=== PATIENT | male | born 1960 | race Caucasian/White ===

== ENCOUNTER → 2017-07-26 | Outpatient (CLI) | payer OTHER | LOC: RAD 13:27 | DX: J44.9 Chronic obstructive pulmonary disease, unspecified (principal) ==

== ENCOUNTER 2019-01-28 06:35 | Emergency (ER) | payer OTHER ==
[~2019-01-28] VITALS: Ht 180.3 cm; Wt 74.8 kg
[~2019-01-28 06:35] MED LIST: ASPIRIN325 PO; BREO ELLIPTA 11 EACH INH; LIDOCAINE1 EACH TOP; NORCO 5-325 TA1 EACH PO; VENTOLIN HFA INH8 GM INH
[2019-01-28] MEDS ORDERED: BRIDION200 MG/2 M (06:40)
[2019-01-28] MEDS ORDERED: NORCO 5-325 TA1 EACH PO (08:11)
[2019-01-28 08:30] VITALS: BP 131/81
== END 2019-01-28 08:03 | disposition home or self-care (01) ==
LOC: ER 06:35
DX: S63.681A Other sprain of right thumb, initial encounter (principal); S20.212A Contusion of left front wall of thorax, initial encounter; E78.00 Pure hypercholesterolemia, unspecified; F17.210 Nicotine dependence, cigarettes, uncomplicated; Z88.1 Allergy status to other antibiotic agents; W18.39XA Other fall on same level, initial encounter; Y93.89 Activity, other specified; Y92.89 Other specified places as the place of occurrence of the external cause; Y99.8 Other external cause status

== ENCOUNTER → 2019-03-21 | Outpatient (CLI) | payer OTHER ==
[~2019-03-21] VITALS: Ht 177.8 cm; Wt 74.8 kg
[~2019-03-21] MED LIST changes: +BRIDION200 MG/2 M; +LIPITOR40 MG PO; +LOPRESSOR50 PO; +NITROSTAT0.4 M1 SUBLING
[2019-03-21 07:01] VITALS: BP 144/74
[2019-03-21 07:05] LABS: HEMATOCRIT 49.9 % (42.0-52.0); HEMOGLOBIN 16.8 gm/dL (14.0-18.0); MCH 33.4 pg (26.0-34.0); MCHC 33.6 g/dL (28.0-37.0); MCV 99.2 fL (80.0-100.0); RBC 5.02 mil/uL (4.50-6.00); RDW 14.1 % (10.5-14.5); WBC 10.1 thou/uL (4.0-11.0)
[2019-03-21 07:14] LABS: CALCIUM 9.2 mg/dL (8.5-10.1); CREATININE 0.9 mg/dL (0.7-1.3); POTASSIUM 4.3 mmol/L (3.5-5.1)
--- NOTE | 2019-03-22 08:02 | EKG ---
[place] [address] [employer] [place] [address] ELECTROCARDIOGRAM REPORT Name: MIKE BURGESS [id number] ������������������ Admission: 03/21/19 ������������������ Attend Phys: John Youssef MD, Discharge: ������������������ Date of : 60 Report #: [id number] ����������������������������������������������������������������� [id number] THIS REPORT FOR: //name// 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 TOWNSEND : 1960 Requested By: John Youssef Order Number: [id number] MD: Chuy Ramirez Measurements Intervals [place] Rate: 74 P: 36 MI: 155 QRS: -55 QRSD: 164 T: 118 QT: 450 QTc: 500 Interpretive Statements Sinus rhythm Left bundle branch block Compared to ECG 04/26/2018 08:33:20 No significant changes Electronically Signed On 03-22-2019 8:01:55 CDT by Chuy Ramirez [email or web address] ��������������������������������������������� <ELECTRONICALLY SIGNED> ���������������������������������������� By: Chuy Ramirez MD, [facility] ��������������������������������������������� 03/22/19800 1 1 Chuy Ramirez MD, FACC /EPI
--- NOTE | 2019-03-22 14:02 | CATHLAB ---
[facility] [address] [place] [address] INVASIVE PROCEDURE REPORT Name: MIKE BURGESS Room #: REG Nikky#: [id number] ������������� Admission: 03/21/19 ������������� Attend Phys: John Youssef, Discharge: ��� ������������� ��� Date of : 60 Date of Service: 03/22/19 1402 �� Report #: [id number] �������� ��������������������������������������������[id number] THIS REPORT FOR: //name// APPROVED REPORT Study performed: 03/21/2019 07:56:18 Patient Details Patient Status: Out-Patient Room #: The patient is a 58 year-old male Event Personnel John Youssef Kennel Hand, Frankie Antoine RN, Danny Bowden RTR Scrub, Tino Soto RN RN, Jaciel Guevara Monitor, Jf Manzanares RTR Scrub Procedures Performed Art Access - R femoral artery* Geoffrey Access - R femoral vein Right and Left Heart Cath w/or w/o Coronarie [id number] [facility] Hemostasis w/ Mynx Indication Chest pain Procedure Narrative The patient was brought electively to the Cardiac Catheterization Laboratory and was prepped and draped in a sterile manner. The Right Groin^ was infiltrated with 1% Lidocaine subcutaneous anesthesia. A Right Heart Catheterization was performed with a 7 Fr. [place] catheter and pressure were recorded. Cardiac outputs were obtained by the Thermal Dilution method. A PINNACLE 6FR Sheath #[id number] sheath was inserted into the RFA^. Coronary angiography was performed using coronary diagnostic catheters. The right coronary system was accessed and visualized with a JR 4 catheter. The left coronary system was accessed and visualized with a JL 4 catheter. The left ventricle was accessed and visualized with a Pigtail catheter. Left ventriculogram was performed in [place] projection. An aortogram of the abdominal aorta was performed. Pre-demployment femoral angiogram was performed . Closure device was deployed with a 6 Fr Mynx. The patient tolerated the procedure well and there were no complications associated with the procedure. There was no hematoma. Intraoperative Conscious Sedation Sedation start time: 08:20 Case end Time: 08:45 [facility] [address] [place] [address] INVASIVE PROCEDURE REPORT Name: ADITYAMIKE SHEILA Room #: [facility] Nikky#: [id number] ������������� Admission: 03/21/19 ������������� Attend Phys: John Youssef, Discharge: ��� ������������� ��� Date of : 60 Date of Service: 03/22/19 1402 �� Report #: [id number] �������� ��������������������������������������������[id number] Fentanyl 100 mcg Versed 2 mg Fluoro Time: 2.14 minutes Dose: DAP 3489.00 cGycm2 404 mGy Contrast Type and Amount: Omnipaque 115 ml Hemodynamics The right atrial mean pressure is 7 mmHg. The right ventricular pressure is 34/-2 mmHg. The pulmonary artery pressure is 30/12 mmHg with a mean of 19 mmHg. The mean pulmonary capillary wedge pressure is 14 mmHg. The aortic pressure is 99/56 mmHg with a mean of 69 mmHg. The left ventricular pressure is 115/2 mmHg with a mean of mmHg. The left ventricular end diastolic pressure is 12 mmHg. Conclusion #1 successful right heart catheterization with cardiac output by thermodilution. See above hemodynamics. #2 mildly dilated left ventricle with moderate global hypokinesis EF 40% range. #3 abdominal aortogram with mild irregularities no aneurysm formation single bilateral renal arteries appear widely patent #4 left main free of disease giving rise to LAD and circumflex #5 the LAD extends to the apex diffusely diseased distally there is a proximal mid vessel stent to 60% in-stent restenosis this was placed remotely. Does not appear to be flow limiting. #6 circumflex OM mild irregularity #7 dominant right coronary with mild irregularity no occlusive disease. Recommendations and plan: Continue aggressive risk factor modification. Continue afterload reduction. 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 Alcohol cessation strongly recommended we'll have close follow-up. ��������������������������������������������� <ELECTRONICALLY SIGNED> ���������������������������������������� By: John Youssef MD, FACC ��������������������������������������������� 03/22/19 1402 140 01 John Youssef MD, FACC /INF
== END | disposition home or self-care (01) ==
LOC: CATH 06:38
PROVIDERS: Internal Medicine Cardiovascular Disease
DX: R07.9 Chest pain, unspecified (principal); E78.00 Pure hypercholesterolemia, unspecified; I42.9 Cardiomyopathy, unspecified; I10 Essential (primary) hypertension; J44.9 Chronic obstructive pulmonary disease, unspecified; E78.5 Hyperlipidemia, unspecified; F17.210 Nicotine dependence, cigarettes, uncomplicated; Z95.5 Presence of coronary angioplasty implant and graft; Z88.8 Allergy status to other drugs, medicaments and biological substances; Z79.82 Long term (current) use of aspirin; Z79.899 Other long term (current) drug therapy

== ENCOUNTER 2021-01-03 22:34 | Inpatient (IN) | payer OTHER ==
[~2021-01-03] VITALS: Ht 180.3 cm; Wt 81.2 kg
--- NOTE | ~2021-01-03 | HC ---
[facility] [place] [address] CONSULTATION Name: MIKE BURGESS Room #: 464- ADM IN M.R.#: [id number] Admission: 01/04/21 Attend Phys: Talib Barrientos MD Discharge: Date of : 60 Report #: [id number] THIS REPORT FOR: cc: Erwin Nelson Steven F. DO McElhinney, Christian C. MD ~ DOC #: [id number] cc: MD Jose Bautista MD DATE OF SERVICE: 01/04/2021 HISTORY OF PRESENT ILLNESS: The patient is a 60-year-old male with recent nausea, vomiting and hematemesis. Hemoglobin on admission was 17.8, today is 15.8. No previous history of GI bleed. No history of endoscopy in the past. He does not have insurance. He ran out of his medications. He started taking his cardiac medications yesterday at 2:00 p.m. and at 4:00 p.m., he began having nausea and vomiting followed by hematemesis. He denies any abdominal pain. No heartburn. No dysphagia or odynophagia. No chest pain or shortness of breath currently. Again, no previous history of colonoscopy. His bowel movements have been normal. He denies any melanotic stools. He is on aspirin on a regular basis at home. He is feeling better today after antinausea medications, has been drinking liquids all morning without emesis. ALLERGIES: CEPHALEXIN. PAST MEDICAL HISTORY: Hypercholesterolemia, history of coronary artery disease status post stent placement, asthma and hypertension. REVIEW OF SYSTEMS: As per HPI. HOME MEDICATIONS: Lopressor, aspirin, Lipitor, nitroglycerin p.r.n., and Edarbi. FAMILY HISTORY: Negative for colon cancer. SOCIAL HISTORY: Drinks alcohol on a regular basis. He also smokes cigarettes on a regular basis, 2 packs per day. PHYSICAL EXAMINATION: VITAL SIGNS: Temperature is 36.7, pulse 102, blood pressure is 126/92, respiratory rate is 18. GENERAL: He is alert and oriented x3, no acute distress. HEENT: Sclerae nonicteric. Oropharynx clear. NECK: Supple, without lymphadenopathy. CARDIOVASCULAR: Regular rate and rhythm. [facility] [address] [place] [address] CONSULTATION Name: MIKE BURGESS Room #: 4-[facility] IN M.R.#: [id number] Admission: 01/04/21 Attend Phys: Talib Barrientos MD Discharge: Date of : 60 Report #: [id number] RESPIRATORY: Chest is clear to auscultation bilaterally. ABDOMEN: Soft, nontender, nondistended. Normoactive bowel sounds. EXTREMITIES: No cyanosis, clubbing or edema. LABORATORY DATA: WBC is 9.0, hemoglobin 15.8, platelet count 225. Sodium 140, potassium 3.6, chloride 103, bicarbonate 27, BUN 8, creatinine 0.8, total bilirubin 1.3, AST 30, ALT 57, alkaline phosphatase 79, troponin less than 0.06, total protein 8.1, albumin 3.8, lipase 63. UA showed 1+ ketones, otherwise negative. IMAGING: CT scan of the abdomen and pelvis was performed yesterday and showed large fluid filling of the stomach with enhancement of the gastric mucosa suggesting gastritis, diffuse fatty infiltration of the liver was noted. Gallbladder and bile ducts were unremarkable. Chest x-ray yesterday, mild cardiomegaly without findings of acute pulmonary disease. ASSESSMENT: Nausea, vomiting and hematemesis. Hemoglobin stable at this time. The patient has been on aspirin on a regular basis. I would recommend proceeding with an upper endoscopy in the near future for further evaluation. He had liquids today already for breakfast because he has never had a colonoscopy. I recommended doing both EGD and colonoscopy tomorrow. He is in agreement with this. PLAN: We will continue to hold aspirin. Continue PPI therapy. Monitor hemoglobin and we will prep for EGD and colonoscopy for tomorrow. Thank you for allowing me to participate in his care. Jose Correia MD CCM/SMITA By: [id number] Jose Correia MD /nt
--- NOTE | ~2021-01-03 | EMS ---
[address] [address] EMS Patient Care Report Name: MIKE BURGESS Room #: 464-P ADM IN M.R.#: [id number] Admission: 01/04/21 Attend Phys: Talib Barrientos MD Discharge: Date of : 60 Report #: [id number] THIS REPORT FOR: //name// Report Transmitted: 01/04/2021 03:05 EMS Care Summary [place], [place]/[facility] Incident [id number] @ 01/03/2021 22:08 Incident Location [address] [place] [address] Patient MIKE BURGESS Male, 60 Years 1960 Patient Address [address] [place] [address] Patient History Hypertension (HTN),Cardiac - Stent, Patient Allergies Cephalexin, Patient Medications Other, Atorvastatin, Metoprolol, Albuterol, Chief Complaint abdominal pain Disposition Transported No Lights/[place] [facility] Reason Hemorrhage/Laceration Transported To [facility] Narrative pt found sitting upright in chair and alert. pt a&ox4 gcs 15 and did not present in apparent distress. pt stated he began taking all meds that are listed in med section today at approx 1400. pt stated at around 1600 he began having abdominal pain and vomiting. pt stated he has vomited appro[place] [address] EMS Patient Care Report Name: MIKE BURGESS Room #: 464-P ADM IN M.R.#: [id number] Admission: 01/04/21 Attend Phys: Talib Barrientos MD Discharge: Date of : 60 Report #: [id number] stated he took all of those meds years ago but stopped due to a lapse in health insurance coverage. pt requested to be transported to [facility]. pt was transferred onto ems cot and was secured in a semi fowlers position without incident. pt was loaded into ambulance. pt was transported non emergent. pt was administered 4mg zofran po. transport was uneventful and pt rested on ems cot. pt care was transferred to appropriate staff and ems goes back in service. pts meds were left with pt. Initial Vitals @22:18P: 86,R: 20,BP: 144/90,Pain: 2/10,GCS: 15,SpO2: 95,Revised Trauma: 12, @22:30P: 90,R: 20,BP: 148/90,GCS: 15,SpO2: 95,Revised Trauma: 12, Assessments @22:14MENTAL:No Abnormalities,SKIN:No Abnormalities,HEENT:Head/Face: No Abnormalities,Eyes: No Abnormalities,Neck/Airway: No Abnormalities,LUNG SOUNDS:General: Vomiting,General: Nausea,General: Other,Left Upper: No Abnormalities,Right Upper: No Abnormalities,Left Lower: No Abnormalities,Right Lower: No Abnormalities,ABDOMEN:General: Vomiting,General: Nausea,General: Other,Left Upper: No Abnormalities,Right Upper: No Abnormalities,Left Lower: No Abnormalities,Right Lower: No Abnormalities,PELVIS//GI:No Abnormalities,EXTREMITIES:Left Arm: No Abnormalities,Right Arm: No Abnormalities,Left Leg: No Abnormalities,Right Leg: No Abnormalities,PULSE:NEURO:No Abnormalities,@22:24MENTAL:No Abnormalities,SKIN:No Abnormalities,HEENT:Head/Face: No Abnormalities,Eyes: No Abnormalities,Neck/Airway: No Abnormalities,LUNG SOUNDS:General: No Abnormalities,Left Upper: No Abnormalities,Right Upper: No Abnormalities,Left Lower: No Abnormalities,Right Lower: No Abnormalities,ABDOMEN:General: No Abnormalities,Left Upper: No Abnormalities,Right Upper: No Abnormalities,Left Lower: No Abnormalities,Right Lower: No Abnormalities,PELVIS//GI:No Abnormalities,EXTREMITIES:Left Arm: No Abnormalities,Right Arm: No Abnormalities,Left Leg: No Abnormalities,Right Leg: No Abnormalities,PULSE:NEURO:No Abnormalities, Impression Abdominal Pain Procedures @22:14ALS AssessmentResponse: UnchangedSucceeded@22:21Zofran - 4 Milligrams (mg) - OralResponse: Unchanged Timeline 22:05,Call Received 22:05,Dispatch Notified 22:08,Dispatched 22:08,En Route 22:13,On Scene [address] [address] EMS Patient Care Report Name: MIKE BURGESS Room #: 464-P ADM IN M.R.#: [id number] Admission: 01/04/21 Attend Phys: Talib Barrientos MD Discharge: Date of : 60 Report #: [id number] 22:14,At Patient 22:14,ALS Assessment,Response: UnchangedSucceeded, 22:18,BP: 144/90 M,PULSE: 86,RR: 20 R,SPO2: 95 Ox,ETCO2: ,BG: ,PAIN: 2,GCS: 15, 22:19,Depart Scene 22:21,Zofran - 4 Milligrams (mg) - Oral,Response: Unchanged 22:30,BP: 148/90 M,PULSE: 90,RR: 20 R,SPO2: 95 Ox,ETCO2: ,BG: ,PAIN: ,GCS: 15, 22:31,At Destination 22:39,Call Closed Disclaimer v1.1 Copyright 2020 [employer] This EMS Care Summary contains data elements from the applicable legal record (which may be displayed differently). It is designed to provide pertinent information for the following purposes: continuity of care, clinical quality, and state data reporting. The complete legal record is available to ED staff and administrators of the receiving hospital in [employer] Patient Tracker. All data is provided "as is."
--- NOTE | ~2021-01-03 | P ---
[facility] [address] PROCEDURE REPORT Name: MIKE BURGESS Room #: 464-P [facility] IN M.R.#: [id number] Admission: 01/04/21 Attend Phys: Talib Barrientos MD Discharge: 01/05/21 Date of : 60 Report #: [id number] THIS REPORT FOR: cc: Erwin Nelson Steven F. DO McElhinney, Christian C. MD ~ DOC #: [id number] cc: MD Jose Bautista MD DATE OF SERVICE: 01/05/2021 PROCEDURE PERFORMED: Colonoscopy with polypectomies. HISTORY OF PRESENT ILLNESS: The patient is a 60-year-old male with recent nausea, vomiting, hematemesis. Upper endoscopy was just performed showing multiple gastric ulcers with gastritis, likely long segment of Goldstein's esophagus and duodenitis. No active bleeding. Plan is for colonoscopy. The patient has never had a colonoscopy in the past. No family history of colon cancer. DESCRIPTION OF PROCEDURE: The risks and benefits of the procedure were explained to the patient, those risks including but not limited to bleeding, perforation, and the risk of sedation. He understood these risks and gave informed consent. Sedation was given using propofol per anesthesia. Next, a digital rectal exam was initially performed, which was normal. Next, using a standard Olympus colonoscope, the scope was placed in the patient's anus and advanced under direct vision to the cecum. The overall prep was fairly poor in the cecum and ascending colon. Multiple washings and aspirations were performed. The areas that were visualized were normal in the cecum, ileocecal valve, and ascending colon. The transverse colon was normal. In the descending colon, 2 polyps were noted. The smallest was 3 mm and removed with cold forceps, the larger was 6 and removed by snare cautery. In the sigmoid colon, 2 further polyps noted. The largest was 8 mm, removed and pedunculated, removed by snare cautery. The smaller was 4, removed by cold forceps, otherwise normal. The rectal mucosa was normal. On retroflexion, no abnormalities were noted. The scope was then withdrawn and the procedure terminated. The patient tolerated the procedure well. IMPRESSION: 1. Four colonic polyps as described above. 2. Otherwise, normal colonoscopy, but prep was poor in the right colon. RECOMMENDATIONS: 1. Await biopsy results. 2. Repeat colonoscopy in [address] [place] [address] PROCEDURE REPORT Name: MIKE BURGESS Room #: 464-P DIS IN M.R.#: [id number] Admission: 01/04/21 Attend Phys: Talib Barrientos MD Discharge: 01/05/21 Date of : 60 Report #: [id number] Thank you for allowing me to participate in his care. Jose Correia MD CCM/HÉCTOR By: 0934 Jose Correia MD /nt
--- NOTE | ~2021-01-03 | P ---
[facility] [place] [address] PROCEDURE REPORT Name: MIKE BURGESS Room #: 464-P [facility] IN M.R.#: [id number] Admission: 01/04/21 Attend Phys: Talib Barrientos MD Discharge: 01/05/21 Date of : 60 Report #: [id number] THIS REPORT FOR: cc: Erwin Nelson Steven F. DO McElhinney, Christian C. MD ~ DOC #: [id number] cc: MD Jose John MD DATE OF SERVICE: 01/05/2021 PROCEDURE PERFORMED: Upper endoscopy with biopsies. HISTORY OF PRESENT ILLNESS: The patient is a 60-year-old male with recent nausea, vomiting, hematemesis. No previous history of endoscopy. He has a history of daily aspirin use. Hemoglobin has been stable at 15 yesterday. Plan is for EGD and colonoscopy today. DESCRIPTION OF PROCEDURE: The risks and benefits of the procedure were explained to the patient, those risks including but not limited to bleeding, perforation, and the risk of sedation. He understood these risks and gave informed consent. Sedation was given using propofol per anesthesia. Next, using a standard Olympus upper endoscope, the scope was placed in the patient's mouth and advanced under direct vision through the esophagus, stomach, and into the second portion of the duodenum. The upper esophagus was normal; however, in the mid and distal esophagus, a long segment of likely Goldstein's was noted. This extended from 32 to 38 cm. Several biopsies were obtained. No evidence of esophagitis. Overall, there was a severe diffuse gastritis involving the entire stomach. In the body and antrum, multiple ulcerations were noted throughout. No evidence of active bleeding. Biopsies were obtained today to rule out H. pylori. The pylorus was normal and patent. In the duodenal bulb and first portion, there was mild duodenitis. No evidence of ulcers or bleeding. The second portion of the duodenum was normal. The scope was then withdrawn and the procedure terminated. The patient tolerated the procedure well. IMPRESSION: 1. Likely long segment of Goldstein's esophagus. Biopsies obtained. 2. Severe diffuse gastritis with multiple ulcerations in the gastric body and antrum. No active bleeding at this time. Likely source of recent hematemesis. Biopsies obtained for Helicobacter pylori. 3. Duodenitis. RECOMMENDATIONS: 1. Await biopsy results. 2. Continue daily PPI therapy long-term. [address] [address] PROCEDURE REPORT Name: MKIE BURGESS Room #: 464-P DIS IN M.R.#: [id number] Admission: 01/04/21 Attend Phys: Talib Barrientos MD Discharge: 01/05/21 Date of : 60 Report #: [id number] 3. We will add Carafate for the next two weeks. 4. We will proceed with colonoscopy next today. Thank you for allowing me to participate in his care. Jose Correia MD CCM/HÉCTOR By: 0906 [id number] Jose Correia MD /nt
[2021-01-03 22:46] VITALS: BP 146/82
[2021-01-03 22:58] LABS: ABSOLUTE NEUTROPHILS 9.9 thou/uL (1.4-8.2); BASOPHILS 0.5 % (0.0-2.0); EOSINOPHILS 0.2 % (0.0-3.0); HEMATOCRIT 51.5 % (42.0-52.0); HEMOGLOBIN 17.8 gm/dL (14.0-18.0); MCH 32.7 pg (26.0-34.0); MCHC 34.5 g/dL (28.0-37.0); MCV 94.8 fL (80.0-100.0); MONOCYTES 6.6 % (1.0-8.0); PLATELET COUNT 251 thou/uL (150-400); POLYS 82.7 % (36.0-66.0); RBC 5.43 mil/uL (4.50-6.00); RDW 14.5 % (10.5-14.5)
[2021-01-03] MEDS ORDERED: EDARBI40 MG PO (23:00)
[2021-01-03 23:05] LABS: ANION GAP 11 mmol/L (7-16); BUN 9 mg/dL (7-18); CHLORIDE 101 mmol/L (98-107); CO2 30 mmol/L (21-32); CREATININE 0.9 mg/dL (0.7-1.3); GLUCOSE 141 mg/dL (74-106); POTASSIUM 3.7 mmol/L (3.5-5.1); SODIUM 142 mmol/L (136-145)
[2021-01-03 23:18] LABS: ALBUMIN 3.8 g/dL (3.4-5.0); LIPASE 63 U/L (73-393); SGOT 30 U/L (15-37); SGPT 57 U/L (30-65); TOTAL BILIRUBIN 1.3 mg/dL (0.2-1.0); TOTAL PROTEIN 8.1 g/dL (6.4-8.2); TROPONIN-I <0.06 ng/mL (<0.06)
[2021-01-04 00:09] LABS: URINE BILIRUBIN NEGATIVE (Negative); URINE BLOOD NEGATIVE (Negative); URINE CLARITY CLEAR; URINE COLOR YELLOW; URINE GLUCOSE-RANDOM* NEGATIVE (Negative); URINE KETONES 1+ (Negative); URINE LEUKOCYTES-REFLEX NEGATIVE (Negative); URINE NITRITE-REFLEX NEGATIVE (Negative); URINE PROTEIN (DIPSTICK) NEGATIVE (Negative); URINE SPECIFIC GRAVITY <= 1.005 (1.005-1.035)
[2021-01-04 00:57] VITALS: BP 146/82
[2021-01-04 01:50] VITALS: BP 126/92
--- NOTE | 2021-01-04 03:16 | NUR ---
PT CAME UP INTO ROOM 464 AT AROUND 0145. ALERT AND ORIENTED. UP AD QUE. NAUSEA RESOLVED AFTER BEING MEDICATED IN ER.ABOMINAL SORENESS RATING IT AT 2/10. PROTONIX GIVEN AND IVF STARTED. PT ORIENTED TO STAFF AND TO USE OF THE CALL LIGHT.WILL CONTINUE WITH POC TILL EOS.
[2021-01-04 05:10] LABS: HEMATOCRIT 46.8 % (42.0-52.0); MCH 32.6 pg (26.0-34.0); MCHC 33.7 g/dL (28.0-37.0); MCV 96.7 fL (80.0-100.0); RBC 4.84 mil/uL (4.50-6.00); RDW 14.3 % (10.5-14.5)
[2021-01-04 05:16] LABS: CALCIUM 8.1 mg/dL (8.5-10.1); CREATININE 0.8 mg/dL (0.7-1.3); POTASSIUM 3.6 mmol/L (3.5-5.1)
[2021-01-04 05:17] LABS: HEMOGLOBIN 15.8 gm/dL (14.0-18.0)
--- NOTE | 2021-01-04 09:06 | EKG ---
[address] [place] [address] ELECTROCARDIOGRAM REPORT Name: MIKE BURGESS Room #: 464-P ADM IN M.R.#: [id number] Admission: 01/04/21 Attend Phys: Talib Barrientos MD Discharge: Date of : 60 Report #: [id number] [facility] ED Test Date: 2021-01-03 Test Time: 22:43:46 Pat Name: MIKE BURGESS Department: Room: 464 Gender: M Supervisor Tower: earnestine : 1960 Requested By: Tian Metcalf Order Number: [id number] MD: Vaughn Cooley Measurements Intervals [place] Rate: 82 P: 31 [place]: 155 QRS: -50 QRSD: 171 T: 128 QT: 445 QTc: 520 Interpretive Statements Sinus rhythm Left bundle branch block Compared to ECG 03/21/2019 07:22:27 No significant changes Electronically Signed On 01-04-2021 9:06:01 CDT by Vaughn Cooley [email or web address] <ELECTRONICALLY SIGNED> By: Vaughn Cooley MD, [facility] 01/04/21 09 2243 2243 Vaughn Cooley MD, FACC /EPI
[2021-01-04 09:35] VITALS: BP 131/87
--- NOTE | 2021-01-04 14:06 | NUR ---
Received awake on bed. Due medications given as prescribed, able to swallow meds w/o difficulty. On room air. Vital signs stable. On MS, not on telemetry; no complains and signs of chest pain, crushing sensation and heaviness. On clear liquid diet- tolerating well; no nausea, no vomiting and no abdominal pain noted; diet advanced to soft diet for lunch- pt informed re: this. Continent of bowel and bladder, able to go to the toilet independently. With NS at 126cc/hr, infusing well at L AC; rate decreased to 40cc/hr by Dr Alonso. No complains of pain made during assessment. Still a/w sample for occult blood. To continue monitoring patient. Pt seen and examined by Dr Alonso; talked to pt re: plan of care, pt wishing to go home but after explaining pt agreed to stay. Nicotine patch ordered, librium prescribed as well- given as ordered. With gastro consult- US called answering service. Pt seen and examined by Dr Shah- for EGD/Colonoscopy tomorrow. For soft diet for lunch, clear liquid diet for dinner then NPO at midnight- pt informed and aware re: this. For bowel prep this PM as well. To continue monitoring patient.
[2021-01-04 17:03] VITALS: BP 143/82
[2021-01-04 21:15] VITALS: BP 139/90
--- NOTE | 2021-01-04 23:31 | NUR ---
ASSUMED CARE OF PT AT 1900. PT IS A/O X4 AND IS UP AD QUE. HE IS ON ROOM AIR AND IS NOT ON TELEMETRY. BOWEL PREP BEGAN ON DAY SHIFT AND HE IS CURRENTLY HAVING LIQUID LIGHT BROWN STOOLS. VOIDS PER TOILET. NO C/O PAIN OR DISCOMFORT. DENIES C/O NAUSEA OR STOMACH DISCOMFORT. VSS. AFEBRILE. MEDICATIONS GIVEN PER OCT. CALL LIGHT IS WITHIN REACH. HAVE GIVEN REPORT TO ONCOMING NURSE. AT THIS TIME PT IS LYING IN HIS ROOM WITH HOB ELEVATED AND APPEARS TO BE WATCHING TV.
[2021-01-05 03:30] VITALS: BP 134/86
--- NOTE | 2021-01-05 04:24 | NUR ---
PT ALERT AND ORIENTED X4. VSS. AFEBRILE. NO C/O PAIN. NO S/S DISTRESS. BED DOWN . CALL LIGHT IN REACH. IV FLUIDS INFUSING WITHOUT DIFFICULTY.
--- NOTE | 2021-01-05 11:27 | NUR ---
ASSUMED PT CARE THIS AM. PT VSS, A&OX4. PATIENT ABLE TO MAKE NEEDS KNOWN. UP AD QUE. IV PATENT, FLUIDS INFUSING. PATIENT REMAINS CONTINENT. GI PROCEDURE COMPLETED THIS AM. PT HAS NO COMPLAINTS OF PAIN, NAUSEA, NUMBNESS, OR TINGLING. CALL LIGHT WITHIN REACH.
[2021-01-05 11:39] LABS: ABSOLUTE NEUTROPHILS 4.8 thou/uL (1.4-8.2); BASOPHILS 0.6 % (0.0-2.0); EOSINOPHILS 0.4 % (0.0-3.0); HEMATOCRIT 50.9 % (42.0-52.0); LYMPHOCYTES 26.8 % (24.0-44.0); MCH 32.5 pg (26.0-34.0); MCHC 33.4 g/dL (28.0-37.0); MCV 97.6 fL (80.0-100.0); PLATELET COUNT 225 thou/uL (150-400); POLYS 60.2 % (36.0-66.0); RBC 5.22 mil/uL (4.50-6.00); RDW 14.2 % (10.5-14.5); WBC 7.9 thou/uL (4.0-11.0)
[2021-01-05 11:51] LABS: INR 0.96; PROTIME 10.5 Seconds (10.5-12.1)
[2021-01-05 11:58] LABS: ALBUMIN 3.5 g/dL (3.4-5.0); CALCIUM 8.6 mg/dL (8.5-10.1); CREATININE 0.9 mg/dL (0.7-1.3); MAGNESIUM 2.3 mg/dL (1.8-2.4); POTASSIUM 4.1 mmol/L (3.5-5.1); TOTAL BILIRUBIN 1.7 mg/dL (0.2-1.0); TOTAL PROTEIN 7.4 g/dL (6.4-8.2)
[2021-01-05] MEDS ORDERED: METOPROLOL TART25 MG PO (12:16)
[2021-01-05] MEDS ORDERED: PROTONIX40 M4 PO (12:18)
[2021-01-05] MEDS ORDERED: CARAFATE1 GM PO (12:18)
[2021-01-05] MEDS ORDERED: BUSPIRONE HCL10 MG PO (12:20)
[2021-01-05 12:36] VITALS: BP 143/93
== END 2021-01-05 13:54 | disposition home or self-care (01) | DRG 378 ==
LOC: ER 22:34 → EROBS 01-04 00:59 → 4W 01-04 01:29
PROVIDERS: Emergency Medicine; Internal Medicine; Nurse Practitioner Family; Specialist; ADMIT Internal Medicine; ATTEND Internal Medicine
DX: K29.71 Gastritis, unspecified, with bleeding (principal); I42.9 Cardiomyopathy, unspecified; K25.4 Chronic or unspecified gastric ulcer with hemorrhage; E78.00 Pure hypercholesterolemia, unspecified; J45.909 Unspecified asthma, uncomplicated; I10 Essential (primary) hypertension; F17.210 Nicotine dependence, cigarettes, uncomplicated; K22.70 Barrett's esophagus without dysplasia; E78.5 Hyperlipidemia, unspecified; K29.81 Duodenitis with bleeding; I25.10 Atherosclerotic heart disease of native coronary artery without angina pectoris; K63.5 Polyp of colon; Z20.822 Contact with and (suspected) exposure to COVID-19; Z79.899 Other long term (current) drug therapy; Z79.82 Long term (current) use of aspirin; Z88.8 Allergy status to other drugs, medicaments and biological substances; Z95.5 Presence of coronary angioplasty implant and graft; Z72.89 Other problems related to lifestyle
CPT/HCPCS: 10040; 62110; 62900; 70005

== ENCOUNTER → 2021-01-17 | Outpatient (CLI) | payer OTHER ==
[~2021-01-17] MED LIST changes: +BUSPIRONE HCL10 MG PO; +CARAFATE1 GM PO; +EDARBI40 MG PO; +METOPROLOL TART25 MG PO; +PROTONIX40 M4 PO
== END ==
LOC: CAT 10:48
PROVIDERS: ATTEND Neuromusculoskeletal Medicine & OMM
DX: Z12.2 Encounter for screening for malignant neoplasm of respiratory organs (principal); J43.8 Other emphysema; F17.210 Nicotine dependence, cigarettes, uncomplicated